=== PATIENT | female | born 1975 | race Hispanic/Latino ===

== ENCOUNTER 2021-02-08 13:15 | Emergency (ER) | payer OTHER ==
[~2021-02-08] VITALS: Ht 147.3 cm; Wt 72.2 kg
[2021-02-08] MEDS ORDERED: CARVEDILOL3.125 MG PO (13:43)
[2021-02-08] MEDS ORDERED: DULOXETINE HCL30 MG PO (13:44)
[2021-02-08] MEDS ORDERED: LOSARTAN POTASS25 MG PO (13:44)
[2021-02-08] MEDS ORDERED: CLONAZEPAM1 MG PO (13:45)
[2021-02-08 13:51] LABS: HEMOGLOBIN 12.7 g/dl (12.0-16.0); IMMATURE GRANULOCYTES 0.2 % (0.0-5.0); MEAN CELL VOLUME 88.5 fL CALC (80.0-100.0); MEAN CORPUSCULAR HGB 31.2 pG CALC (26.0-32.0); MEAN CORPUSCULAR HGB CONC 35.3 g/dL CAL (32.0-36.0); NEUT# 5.51 thou/uL (2.00-7.15); RED BLOOD COUNT 4.07 mill/uL (4.20-5.60); RED CELL DISTRI WIDTH 12.1 % (11.5-15.5)
[2021-02-08 14:13] LABS: ALBUMIN 4.1 g/dL (3.2-5.0); ALKALINE PHOSPHATASE 98 u/l (38-126); ANION GAP 17 (6-22 (CALC)); BILIRUBIN, TOTAL 0.6 mg/dL (0.0-1.4); BUN 11 mg/dL (7-17); BUN/CREATININE RATIO 20 (12-20 (CALC)); CARBON DIOXIDE 20 mmol/l (22-30); CHLORIDE 105 mmol/l (95-108); CREATININE 0.5 mg/dL (0.5-1.0); GFR > 60 ML/MIN (>=60 (CALC)); GFR FOR AFR.AMER. > 60 ML/MIN (>=60 (CALC)); LIPASE 136 u/l (23-300); POTASSIUM 4.4 mmol/l (3.5-5.1); SGOT/AST 32 u/l (14-36); SODIUM 136 mmol/l (137-146); TOTAL PROTEIN 7.9 g/dL (6.3-8.2)
[2021-02-08 16:17] LABS: URINE BILIRUBIN - DIPSTICK NEGATIVE (NEGATIVE); URINE BLOOD DIPSTICK NEGATIVE (NEGATIVE); URINE COLOR YELLOW; URINE GLUCOSE - DIPSTICK NEGATIVE (NEGATIVE); URINE KETONE NEGATIVE (NEGATIVE); URINE LEUK ESTERASE NEGATIVE (NEGATIVE); URINE PROTEIN - DIPSTICK NEGATIVE (NEG-TRACE); URINE SPECIFIC GRAVITY 1.015; URINE UROBILINOGEN - DIPSTICK 0.2 E.U./dL (0.2)
[2021-02-08 16:18] LABS: URINE NITRITE - DIPSTICK NEGATIVE (Negative)
[2021-02-08 17:49] VITALS: BP 122/72
== END 2021-02-08 17:49 | disposition home or self-care (01) | DRG 313 ==
LOC: ED 13:15
DX: R07.89 Other chest pain (principal); I10 Essential (primary) hypertension

== ENCOUNTER 2022-07-18 12:14 | Emergency (ER) | payer OTHER ==
[~2022-07-18] VITALS: Ht 147.3 cm; Wt 68.9 kg
[~2022-07-18 12:14] MED LIST: CARVEDILOL3.125 MG PO; CLONAZEPAM1 MG PO; DULOXETINE HCL30 MG PO; LOSARTAN POTASS25 MG PO
[2022-07-18 12:31] VITALS: BP 150/106
[2022-07-18 13:00] VITALS: BP 125/84
[2022-07-18 13:16] LABS: ALBUMIN 4.3 g/dL (3.2-5.0); ALKALINE PHOSPHATASE 89 u/l (38-126); BILIRUBIN, TOTAL 0.6 mg/dL (0.0-1.4); BUN 13 mg/dL (7-17); BUN/CREATININE RATIO 17 (12-20 (CALC)); CHLORIDE 107 mmol/l (95-108); CREATININE 0.7 mg/dL (0.5-1.0); GFR FOR AFR.AMER. > 60 ML/MIN (>=60 (CALC)); GFR OTHER RACES > 60 ML/MIN (>=60 (CALC)); LIPASE 144 u/l (23-300); POTASSIUM 4.7 mmol/l (3.5-5.1); SGOT/AST 35 u/l (14-36); SODIUM 142 mmol/l (137-146); TOTAL PROTEIN 7.6 g/dL (6.3-8.2)
[2022-07-18 13:19] LABS: HEMATOCRIT 38.3 % (37.0-47.0); HEMOGLOBIN 13.5 g/dl (12.0-16.0); IMMATURE GRANULOCYTES 0.1 % (0.0-5.0); MEAN CELL VOLUME 92.5 fL CALC (80.0-100.0); MEAN CORPUSCULAR HGB 32.6 pG CALC (26.0-32.0); MEAN CORPUSCULAR HGB CONC 35.2 g/dL CAL (32.0-36.0); NEUT# 3.68 thou/uL (2.00-7.15); RED BLOOD COUNT 4.14 mill/uL (4.20-5.60); RED CELL DISTRI WIDTH 11.7 % (11.5-15.5)
[2022-07-18 13:25] LABS: ANION GAP 14 (6-22 (CALC)); CARBON DIOXIDE 26 mmol/l (22-30)
[2022-07-18 15:48] VITALS: BP 125/86
[2022-07-18 16:00] LABS: URINE BILIRUBIN - DIPSTICK NEGATIVE (NEGATIVE); URINE BLOOD DIPSTICK NEGATIVE (NEGATIVE); URINE COLOR YELLOW; URINE GLUCOSE - DIPSTICK NEGATIVE (NEGATIVE); URINE KETONE NEGATIVE (NEGATIVE); URINE LEUK ESTERASE NEGATIVE (NEGATIVE); URINE PROTEIN - DIPSTICK NEGATIVE (NEG-TRACE); URINE SPECIFIC GRAVITY 1.015; URINE UROBILINOGEN - DIPSTICK 0.2 E.U./dL (0.2)
[2022-07-18 16:01] VITALS: BP 128/90
[2022-07-18 16:11] LABS: URINE NITRITE - DIPSTICK NEGATIVE (Negative)
[2022-07-18 16:32] VITALS: BP 159/87
[2022-07-18] MEDS ORDERED: PROTONIX40 M2 PO (16:33)
[2022-07-18 16:39] VITALS: BP 159/87
== END 2022-07-18 16:40 | disposition home or self-care (01) | DRG 392 ==
LOC: ED 12:14
PROVIDERS: Family Medicine
DX: R10.13 Epigastric pain (principal)
CPT/HCPCS: Q9967

== ENCOUNTER 2023-01-16 12:37 | Emergency (ER) | payer OTHER ==
[~2023-01-16] VITALS: Ht 142.2 cm; Wt 61.0 kg
[~2023-01-16 12:37] MED LIST changes: +PROTONIX40 M2 PO
[2023-01-16 12:51] VITALS: BP 119/80
[2023-01-16] MEDS ORDERED: ESCITALOPRAM OX20 MG PO (13:00)
[2023-01-16] MEDS ORDERED: PHENAZOPYRIDIN100 M1 (13:00)
[2023-01-16] MEDS ORDERED: WELLBUTRIN XL300 MG (13:00)
[2023-01-16] MEDS ORDERED: XANAX1 MG PO (13:01)
[2023-01-16 13:27] LABS: URINE BILIRUBIN - DIPSTICK NEGATIVE (NEGATIVE); URINE BLOOD DIPSTICK SMALL (NEGATIVE); URINE COLOR YELLOW; URINE GLUCOSE - DIPSTICK NEGATIVE (NEGATIVE); URINE KETONE NEGATIVE (NEGATIVE); URINE PROTEIN - DIPSTICK 30 mg/dL (NEG-TRACE); URINE SPECIFIC GRAVITY >=1.030
[2023-01-16 13:29] LABS: URINE LEUK ESTERASE MODERATE (NEGATIVE); URINE NITRITE - DIPSTICK NEGATIVE (Negative)
[2023-01-16 13:37] LABS: URINE BACTERIA FEW hpf; URINE SQUAMOUS EPITHELIAL CELL FEW EPI/hpf (0-FEW)
[2023-01-16] MEDS ORDERED: LEVAQUIN750 M1 PO (16:02)
[2023-01-16 16:34] VITALS: BP 126/80
== END 2023-01-16 16:40 | disposition home or self-care (01) | DRG 690 ==
LOC: ED 12:37
PROVIDERS: Family Medicine
DX: N39.0 Urinary tract infection, site not specified (principal); B96.20 Unspecified Escherichia coli [E. coli] as the cause of diseases classified elsewhere; I10 Essential (primary) hypertension; F41.0 Panic disorder [episodic paroxysmal anxiety]; F32.A Depression, unspecified; Z87.440 Personal history of urinary (tract) infections; Z86.16 Personal history of COVID-19

== ENCOUNTER 2024-04-24 07:56 | Day surgery (SDC) | payer OTHER ==
[~2024-04-24] VITALS: Ht 147.3 cm; Wt 69.4 kg
[~2024-04-24 07:56] MED LIST changes: +ASPIRINCHW 81MG PO; +CLONAZEPAM0.5 M1 PO; +CYANOCOBAL1000 MCG/M; +ESCITALOPRAM OX20 MG PO; +KEFLEX500 MG PO; +LEVAQUIN750 M1 PO; +OMEGA 31000 MG PO; +PEPCID20 MG PO; +PHENAZOPYRIDIN100 M1; +TYLENOL500 MG PO; +WELLBUTRIN XL300 MG; +XANAX1 MG PO
[2024-04-24] MEDS ORDERED: LACTATED RINGER'S 1,000 ML IV ONE (08:39)
[2024-04-24] MEDS ORDERED: FAMOTIDINE 10MG/ML 2ML SDV IV ONE (08:39)
[2024-04-24 10:38] VITALS: BP 107/66
[2024-04-24] MEDS ORDERED: MIDAZOLAM HCL 2 MG/2 ML VIAL IV ONE (13:01)
[2024-04-24] MEDS ORDERED: PROPOFOL 200 MG/20 ML VIAL IV ONE (13:01)
[2024-04-24] MEDS ORDERED: LIDOCAINE HCL 2% 2ML SDV IV ONE (13:01)
[2024-04-24] MEDS ORDERED: GLYCOPYRROLATE 0.2 MG/ML IV ONE (13:01)
== END 2024-04-24 10:42 | disposition home or self-care (01) | DRG 951 ==
LOC: ENDO 07:56 → ORM 11:45
PROVIDERS: ATTEND Internal Medicine Gastroenterology
PROC: 0DBL8ZX Excision of Transverse Colon, Via Natural or Artificial Opening Endoscopic, Diagnostic (ICD-10-PCS; principal; 2024-04-24)
PROC: 0DB98ZX Excision of Duodenum, Via Natural or Artificial Opening Endoscopic, Diagnostic (ICD-10-PCS; 2024-04-24)
PROC: 0DB78ZX Excision of Stomach, Pylorus, Via Natural or Artificial Opening Endoscopic, Diagnostic (ICD-10-PCS; 2024-04-24)
DX: Z12.11 Encounter for screening for malignant neoplasm of colon (principal); K63.5 Polyp of colon; K64.8 Other hemorrhoids; K21.9 Gastro-esophageal reflux disease without esophagitis; K29.70 Gastritis, unspecified, without bleeding

== ENCOUNTER 2024-07-25 22:27 | Emergency (ER) | payer OTHER ==
[~2024-07-25] VITALS: Ht 147.3 cm; Wt 78.5 kg
[2024-07-25 23:10] LABS: BASO% 0.4 % (0-3); EOS% 2.1 % (0-8); HEMATOCRIT 37.4 % (37.0-47.0); HEMOGLOBIN 12.6 g/dl (12.0-16.0); IMMATURE GRANULOCYTES 0.1 % (0.0-5.0); LYMPH% 24.1 % (15-41); MEAN CELL VOLUME 93.5 fL CALC (80.0-100.0); MEAN CORPUSCULAR HGB 31.5 pG CALC (26.0-32.0); MEAN CORPUSCULAR HGB CONC 33.7 g/dL CAL (32.0-36.0); MONO% 8.7 % (2-13); NEUT# 9.04 thou/uL (2.00-7.15); NEUT% 64.6 % (42-76); RED CELL DISTRI WIDTH 11.6 % (11.5-15.5)
[2024-07-25] MEDS ORDERED: AMOXICILLIN500 M2 PO (23:49)
[2024-07-25] MEDS ORDERED: AMOXICILLIN TRIHYDRATE 500 MG/CAP PO ONE (23:50)
[2024-07-26 00:16] VITALS: BP 144/89
== END 2024-07-26 00:17 | disposition home or self-care (01) | DRG 153 ==
LOC: ED 22:27
PROVIDERS: Family Medicine
DX: J03.90 Acute tonsillitis, unspecified (principal); R07.89 Other chest pain; I10 Essential (primary) hypertension; F41.0 Panic disorder [episodic paroxysmal anxiety]; F32.A Depression, unspecified; Z20.822 Contact with and (suspected) exposure to COVID-19

== ENCOUNTER 2024-08-17 19:02 | Emergency (ER) | payer OTHER ==
[~2024-08-17] VITALS: Ht 147.3 cm; Wt 70.7 kg
[~2024-08-17 19:02] MED LIST changes: +AMOXICILLIN500 M2 PO
[2024-08-17 20:25] VITALS: BP 136/86
== END 2024-08-17 20:25 | disposition left against medical advice (07) | DRG 951 ==
LOC: ED 19:02 → LWOBS 20:25
DX: Z53.21 Procedure and treatment not carried out due to patient leaving prior to being seen by health care provider (principal)

== ENCOUNTER 2024-09-15 17:13 | Emergency (ER) | payer OTHER ==
[2024-09-15] VITALS (15 sets, daily range): BP systolic 120–151; BP diastolic 80–104
[~2024-09-15] VITALS: Ht 147.3 cm; Wt 73.0 kg
[2024-09-15] MEDS ORDERED: ALPRAZolam 1 MG/TAB PO ONE (17:35)
[2024-09-15] MEDS ORDERED: ASPIRIN 81 MG/TAB PO ONE (17:35)
[2024-09-15 17:51] LABS: BASO% 0.6 % (0-3); EOS% 0.4 % (0-8); IMMATURE GRANULOCYTES 0.3 % (0.0-5.0); LYMPH% 19.4 % (15-41); MEAN CELL VOLUME 92.8 fL CALC (80.0-100.0); MEAN CORPUSCULAR HGB 31.3 pG CALC (26.0-32.0); MEAN CORPUSCULAR HGB CONC 33.8 g/dL CAL (32.0-36.0); NEUT# 8.48 thou/uL (2.00-7.15); NEUT% 73.3 % (42-76); RED BLOOD COUNT 4.85 mill/uL (4.20-5.60); RED CELL DISTRI WIDTH 11.8 % (11.5-15.5)
[2024-09-15 17:59] LABS: ALBUMIN 4.7 g/dL (3.2-5.0); ALKALINE PHOSPHATASE 114 u/l (38-126); ANION GAP 16 (6-22 (CALC)); BILIRUBIN, TOTAL 0.9 mg/dL (0.02-1.3); BUN 11 mg/dL (7-17); BUN/CREATININE RATIO 18 (12-20 (CALC)); CARBON DIOXIDE 24 mmol/l (22-30); CHLORIDE 103 mmol/l (95-108); CREATININE 0.6 mg/dL (0.5-1.0); ESTIMATED GFR 111 ML/MIN (>=90 (CALC)); HEMOGLOBIN 15.2 g/dl (12.0-16.0); POTASSIUM 4.1 mmol/l (3.5-5.1); SGOT/AST 53 u/l (14-36); SODIUM 139 mmol/l (137-146); TOTAL PROTEIN 8.4 g/dL (6.3-8.2)
[2024-09-15] MEDS ORDERED: ALPRAZOLAM0.5 MG PO (20:38)
== END 2024-09-15 21:00 | disposition home or self-care (01) | DRG 313 ==
LOC: ED 17:13
PROVIDERS: Nurse Practitioner
DX: R07.89 Other chest pain (principal); F41.9 Anxiety disorder, unspecified; I10 Essential (primary) hypertension; F32.A Depression, unspecified; Z63.0 Problems in relationship with spouse or partner